=== PATIENT | female | born 1980 | race Asian ===

== ENCOUNTER → 2017-01-13 | Outpatient (CLI) | payer BC | LOC: FIMAGING 15:27 | PROVIDERS: ATTEND Family Medicine | DX: M54.5 Low back pain (principal); R20.2 Paresthesia of skin ==

== ENCOUNTER → 2017-08-06 | Outpatient (CLI) | payer BC | LOC: FIMAGING 10:48 | PROVIDERS: ATTEND Family Medicine | DX: N63.21 Unspecified lump in the left breast, upper outer quadrant (principal) | CPT/HCPCS: G0204 ==